=== PATIENT | male | born 1980 | race Caucasian/White ===

== ENCOUNTER 2017-04-20 20:21 | Emergency (ER) | payer MEDICAID ==
[~2017-04-20] VITALS: Ht 177.8 cm; Wt 75.0 kg
[2017-04-20 20:22] VITALS: BP 178/85
[2017-04-20] MEDS ORDERED: ONDANSETRON 2MG/ML, 2ML IVP ONE (21:00)
[2017-04-20] MEDS ORDERED: MORPHINE SULFATE 4 MG/ML, 1ML IVPush PRN (21:00)
[2017-04-20] MEDS ORDERED: SODIUM CHLORIDE FLUSH 10ML SYR IVF ONE (21:00)
[2017-04-20 21:17] LABS: HEMOGLOBIN 13.6 g/dL (13.7-18.0); WHITE BLOOD COUNT 7.5 x10^3/uL (3.4-10)
[2017-04-20] MEDS ORDERED: morphine SULFATE 10 MG/ML, 1ML ONE (21:17)
[2017-04-20] MEDS ORDERED: ONDANSETRON 2MG/ML, 2ML ONE (21:17)
[2017-04-20 21:25] LABS: BLOOD UREA NITROGEN 11 mg/dL (7-18)
[2017-04-20 21:30] LABS: IS PT STATUS REG ER OR PRE ER? YES
== END 2017-04-20 22:25 | disposition home or self-care (01) ==
LOC: ED 21:45
DX: M94.0 Chondrocostal junction syndrome [Tietze] (principal); F17.210 Nicotine dependence, cigarettes, uncomplicated
CPT/HCPCS: 36415; 71020; 80048; 82040; 84484; 85025; 93005; 96374; 96375; 99285; J2405